=== PATIENT | female | born 1975 | race Caucasian/White ===

== ENCOUNTER 2017-03-07 19:58 | Emergency (ER) | payer OTHER ==
[~2017-03-07 19:58] MED LIST: IPRATROPIUM/ALBUTEROL SULFATE 3 ML AMPUL.NEB NEB ONE
[2017-03-07] MEDS ORDERED: predniSONE 10 MG TABLET PO ONE (20:11)
--- NOTE | 2017-03-07 20:15 | ED Physician Documentation ---
General Adult - HISTORIAN Historian: patient - HPI Stated Complaint: Wheezing Chief Complaint: General Adult Additional Information: Wheezing began this evening with exposure to the cold air. Takes several asthma meds daily. Last flare 2 weeks ago. - ROS CONST: no problems - PAST HX Past History: asthma Allergies/Adverse Reactions: Allergies Allergy/AdvReac Type Severity Reaction Status Date / Time No Known Allergies Allergy Unverified 03/07/17 20:05 Home Medications: Ambulatory Orders Medication Instructions Recorded Albuterol Sulfate [Proair HFA] 03/07/17 Albuterol Sulfate [Ventolin] 2.5 mg NEB Q4 PRN 03/07/17 Albuterol Sulfate [Ventolin] 2.5 mg NEB Q4 PRN 03/07/17 Azelastine HCl [Astelin] 1 spray NS 03/07/17 Budesonide/Formoterol Fumarate 1 puff IH 03/07/17 [Symbicort 160-4.5 Mcg Inhaler] Ethinyl Estradiol/Drospirenone 1 tab PO DAILY 03/07/17 [[place] 3 mg-0.02 mg Tablet] Fluticasone Propionate [Flonase 1 spray NS 03/07/17 Nasal [place]] Levothyroxine Sodium [Synthroid] 150 mcg PO DAILY 03/07/17 Liothyronine Sodium [Cytomel] 5 mcg PO DAILY 03/07/17 Metformin HCl [Glucophage] 500 mg PO PM 03/07/17 Montelukast Sodium [Singulair] 10 mg PO HS 03/07/17 Nucala 03/07/17 Omeprazole [Prilosec] 20 mg PO 03/07/17 Tiotropium [place] [Spiriva] 1 inh IH QD 03/07/17 predniSONE [Deltasone] 20 mg PO QD #6 tablet 03/07/17 - SOCIAL HX Smoking History: non-smoker - FAMILY HX Family History: No - VITAL SIGNS Vital Signs: Vital Signs Temp Pulse Resp BP Pulse Ox 97.1 F L 80 24 113/89 99 03/07/17 19:58 03/07/17 19:58 03/07/17 19:58 03/07/17 19:58 03/07/17 19:58 - REVIEWED ASSESSMENTS Nursing Assessment Reviewed: Yes Vitals Reviewed: Yes Progress - Progress Progress: 2230, much better after Duonebs x2, albuterol neb, budesonide. Scope scheduled for next week to see why asthma episodes recurrent. ED Results Lab/Radiology - Orders Orders: ED Orders Category Date Time Status predniSONE [Deltasone] Med 03/07/17 20:11 Once 40 mg PO NOW ONE General Adult Physical Exam - PHYSICAL EXAM GENERAL APPEARANCE: moderate distress EENT: eye inspection normal, ENT inspection normal, pharynx normal NECK: normal inspection, supple RESPIRATORY: no resp distress, breath sounds normal (decreased), wheezes CVS: reg rate & rhythm, heart sounds normal, no murmur BACK: normal inspection SKIN: warm/dry, normal color EXTREMITIES: no evidence of injury NEURO: motor nml, sensation nml, cognition normal Discharge Clincal Impression: Asthma attack Qualifiers: Asthma severity: moderate Asthma persistence: unspecified Qualified Code(s): J45.901 - Unspecified asthma with (acute) exacerbation Prescriptions: predniSONE [Deltasone] 20 mg PO QD #6 tablet Referrals: Mary Jane Maravilla MD [Primary Care Provider] - 2 Days Condition: Good Disposition: 01 HOME, SELF-CARE Decision to Admit: NO Decision Time: 22:30
[2017-03-07] MEDS ORDERED: IPRATROPIUM/ALBUTEROL SULFATE 3 ML AMPUL.NEB NEB ONE (20:42)
[2017-03-07] MEDS ORDERED: ALBUTEROL SULFATE 2.5 MG/3 ML AMPUL.NEB NEB ONE (21:39)
[2017-03-07] MEDS ORDERED: BUDESONIDE 0.5MG/2ML AMPUL.NEB NEB ONE (21:39)
[2017-03-07 22:53] VITALS: BP 109/84
== END 2017-03-07 22:45 | disposition home or self-care (01) ==
LOC: ED 19:58
DX: J45.901 Unspecified asthma with (acute) exacerbation (principal)
CPT/HCPCS: J7512; J7626; 99283